=== PATIENT | female | born 1970 | race Caucasian/White ===

== ENCOUNTER 2018-12-02 07:36 | Emergency (ER) | payer OTHER ==
[2018-12-02 07:36] VITALS: BMI 26.4
[2018-12-02 07:40] VITALS: TEMP 96.7
[2018-12-02] MEDS ORDERED: ZOFRAN 4 MG/2 ML IM STA (07:49)
[2018-12-02] MEDS ORDERED: STADOL IM STA (07:49)
--- NOTE | 2018-12-02 09:04 | CT ---
EXAM: CT BRAIN HISTORY: Pain and throbbing of the left head TECHNIQUE: CT brain without intravenous contrast. 5-mm axial sections with Reformations. COMPARISON: 08/13/2015 FINDINGS: Brain is unremarkable without evidence of hemorrhage or large vessel distribution recent ischemic in farction. There is no suggestion of acute hydrocephalus or subdural fluid collection. No mass or ma ss effect. Cranium has no acute finding. Mastoid processes are aerated. The visualized paranasal sinuses are clear. IMPRESSION: No acute intracranial process.
--- NOTE | 2018-12-02 09:29 | ED.PDOC ---
General ED Provider: Dr. MIRTHA RODARTE Chief Complaint: Headache Stated Complaint: headache Time Seen by Physician: 07:44 (richard present ) Mode of Arrival: Walk-In Information Source: Patient Exam Limitations: No limitations Primary Care Provider: DEYANIRA CORCORAN Nursing and Triage Documentation Reviewed and Agree: Yes Does patient meet sepsis criteria?: No System Inflammatory Response Syndrome: Not Applicable Sepsis Protocol: For patient's 13 years and over: Temp is 96.8 and below OR 101 and greater Pulse >90 BPM Resp >20/minute Acutely Altered Mental Status Are patient's symptoms suggestive of a new infection, such as: -Pneumonia -Skin, Soft Tissue -Endocarditis -UTI -Bone, Joint Infection -Implantable Device -Acute Abdominal Infection -Wound Infection -Meningitis -Blood Stream Catheter Infection -Unknown Neurological Complaint Exam - Headache Complaint/Exam Onset: Gradual Duration: today Symptoms Are: Still present Timing: Constant Episodes Lasting: Hours Worst Headache Ever: No Initial Severity: Moderate Current Severity: Moderate Location: Left, Frontal, Temporal Character: Reports: Throbbing Aggravating: Reports: Bright lights. Denies: Exertion, Position change Alleviating: Reports: None Associated Signs and Symptoms: Reports: Nausea. Denies: Dizziness, Seizure, Vomiting, Sinus pressure, Fever, Neck pain, Neck stiffness, Decreased LOC, Visual changes Related History: Reports: Similar episode (x 10 years no m.r.i in the past) Related Surgical History: Reports: None SAH Risk Factors: Reports: None Meningitis Risk Factors: Reports: None SDH Risk Factors: Reports: None Temporal Arteritis Risk Factors: Reports: Female, Normal Head CT Within Last 12 Months: No Fundoscopic Exam: Present: Normal Findings Papilledema Present: No Temporal Artery Tenderness: Present: None Sinus Tenderness: Present: None TMJ Tenderness: Present: None Glascow Coma Scale (see protocol): 15 Meningeal Signs Positive: No ROM Limited In: No Limitiations Focal Weakness: Present: None Focal Sensory Loss: Present: None Gait: Normal Nystagmus Present: No Gag Reflex Present: No [id number]: Normal Findings Romberg Test Positive: No Differential Diagnoses: Migraine Review of Systems - Review Of Systems Constitutional: Reports: No symptoms Eyes: Reports: No symptoms Ears, Nose, Mouth, Throat: Reports: No symptoms Respiratory: Reports: No symptoms Cardiac: Reports: No symptoms GI: Reports: No symptoms : Reports: No symptoms Musculoskeletal: Reports: No symptoms Skin: Reports: No symptoms Neurological: Reports: Headache Endocrine: Reports: No symptoms Hematologic/Lymphatic: Reports: No symptoms All Other Systems: Reviewed and Negative Past Medical History - Past Medical History Endocrine: Reports: None Cardiovascular: Reports: None Respiratory: Reports: None Hematological: Reports: None Gastrointestinal: Reports: None Genitourinary: Reports: None Neuro/Psych: Reports: Anxiety Musculoskeletal: Reports: Arthritis Cancer: Reports: None Last Menstrual Period: n/a Other Pertinent Past Medical History: c section francesca - Surgical History General Surgical History: Reports: Hysterectomy, - Family History Family History: Reports: Unknown - Social History Smoking Status: Never smoker Hx Substance Use: No Alcohol Screening: None Physical Exam - Physical Exam Appearance: Well-appearing, No pain distress, Well-nourished Eyes: JERI, EOMI, Conjunctiva clear ENT: Ears normal, Nose normal, Oropharynx normal Respiratory: Airway patent, Breath sounds clear, Breath sounds equal, Respirations nonlabored Cardiovascular: RRR, Pulses normal, No rub, No murmur GI/: Soft, Nontender, No masses, Bowel sounds normal, No Organomegaly Musculoskeletal: Normal strength, ROM intact, No edema, No calf tenderness Skin: Warm, Dry, Normal color Neurological: Sensation intact, Motor intact, Reflexes intact, Cranial nerves intact, Alert, Oriented Psychiatric: Affect appropriate, Mood appropriate - NIH Stroke Scale 1a. Level of Consciousness: 0=Alert and keenly responsive 1b. Level of Consciousness Questions: 0=Answers correctly to two questions 1c. Level of Consciousness Commands: 0=Performs two tasks correctly 2. Best Gaze: 0=Normal 3. Visual: 0=No visual loss 4. Facial Palsy: 0=Normal 5a. Motor Left Arm: 0=No drift,arm holds 90 degrees for 10 sec., leg 30 degrees for 5 sec. 5b. Motor Right Arm: 0=No drift,arm holds 90 degrees for 10 sec., leg 30 degrees for 5 sec. 6a. Motor Left Le=No drift,arm holds 90 degrees for 10 sec., leg 30 degrees for 5 sec. 6b. Motor Right Le=No drift,arm holds 90 degrees for 10 sec., leg 30 degrees for 5 sec. 7. Limb Ataxia: 0=Absent 9. Best Language: 0=No aphasia 10. Dysarthria: 0=Normal 11. Extincion and Inattention: 0=Normal Stroke Scale Total: 0 Interpretation - Radiology Interpretation Radiology Interpretation By: Radiologist Radiology Results: No acute changes Critical Care Note - Critical Care Note Total Time (mins): 0 Course - Course Hematology/Chemistry: 12/02/18 07:55 12/02/18 07:55 Orders, Labs, Meds: Lab Review 12/02/18 12/02/18 07:55 07:55 WBC 7.70 RBC 5.06 Hgb 14.8 Hct 43.3 MCV 85.6 MCH 29.2 MCHC 34.2 RDW Coeff of Maxwell 13.2 Plt Count 273 Immature Gran % (Auto) 0.3 Neut % (Auto) 77.6 Lymph % (Auto) 17.5 [place] % (Auto) 3.0 Eos % (Auto) 1.0 Baso % (Auto) 0.6 Immature Gran # (Auto) 0.0 Neut # (Auto) 6.0 Lymph # (Auto) 1.4 [place] # (Auto) 0.2 L Eos # (Auto) 0.1 Baso # (Auto) 0.1 ESR 4 Sodium 136.8 Potassium 3.95 Chloride 104.9 Carbon Dioxide 23.4 Anion Gap 12.45 BUN 19.8 H Creatinine 0.58 L Estimated GFR (MDRD) 111.00 BUN/Creatinine Ratio 34.13 Glucose 115.6 H Calcium 9.19 Total Bilirubin 0.75 AST 24.0 ALT 24.5 Alkaline Phosphatase 90.0 Total Protein 7.28 Albumin 4.73 Globulin 2.55 Albumin/Globulin Ratio 1.85 Orders Category Date Time Status CBC W/ AUTO DIFF Stat LAB 12/02/18 07:55 Completed COMPREHENSIVE METABOLIC PANEL Stat LAB 12/02/18 07:55 Completed ESR Stat LAB 12/02/18 07:55 Completed Butorphanol Tartrate [Stadol] MEDS 12/02/18 07:49 Discontinued 2 mg IM ONCE STA Ondansetron HCl/Pf [Zofran 4 mg/2 ml] MEDS 12/02/18 07:49 Discontinued 8 mg IM ONCE STA CT HEAD W/O CONTRAST Stat RADS 12/02/18 07:50 Completed Medications Discontinued Medications Generic Name Dose Route Start Last Admin Trade Name Freq PRN Reason Stop Dose Admin Butorphanol Tartrate 2 mg 12/02/18 07:49 12/02/18 08:01 Stadol IM 12/02/18 07:50 2 mg ONCE STA Administration Ondansetron HCl 8 mg 12/02/18 07:49 12/02/18 08:02 Zofran 4 Mg/2 Ml IM 12/02/18 07:50 8 mg ONCE STA Administration Vital Signs: Temp Pulse Resp BP Pulse Ox 12/02/18 07:36 96.7 F L 77 20 123/87 96 Departure - Departure Time of Disposition: 09:30 Disposition: HOME SELF-CARE Discharge Problem: Headache Instructions: Migraine Headache (ED) Condition: Good Pt referred to PMD for follow-up: Yes IPMP verified?: No Additional Instructions: Please call your Family Physician as soon as possible to schedule a follow-up appointment. Allergies/Adverse Reactions: Allergies morphine Adverse Reaction (Verified 12/02/18 07:40) tramadol Adverse Reaction (Verified 12/02/18 07:40) Home Medications: Ambulatory Orders Naproxen [Naprosyn] 500 mg PO BID #14 tab-cap 08/29/15
[2018-12-02 10:03] VITALS: BP 130/74
== END 2018-12-02 09:58 | disposition home or self-care (01) ==
LOC: ED 07:36
DX: R51 Headache (principal)
CPT/HCPCS: 36415; 80053; 85025; 85651; 96372; 99284